=== PATIENT | female | born 1975 | race Hispanic/Latino ===

== ENCOUNTER 2021-03-01 15:28 | Observation (INO) | payer OTHER ==
[2021-03-01] MEDS ORDERED: hydrALAZINE 20 MG/ML VIAL SLOW IVP PRN (16:22)
[2021-03-01] MEDS ORDERED: Acetaminophen 500 MG TAB PO PRN (16:22)
[2021-03-01] MEDS ORDERED: Ondansetron PF 4 MG/2 ML Vial IVP PRN (16:22)
[2021-03-01] MEDS ORDERED: Ondansetron ODT 4 MG TAB PO PRN (16:22)
[2021-03-01 16:58] VITALS: BMI 30.5
[2021-03-01] MEDS ORDERED: Atorvastatin Calcium 40 MG TAB PO SCH (21:00)
[2021-03-01] MEDS: Famotidine 20 MG TAB PO SCH (21:57)
[2021-03-02 05:31] LABS: #Eosinphils 0.1 thou/uL (0.0-0.7); #Lymphocytes 1.7 thou/uL (1.20-3.40); #Monocytes 0.4 thou/uL (0.11-0.59); #Neutrophils 3.6 thou/uL (1.40-6.50); %Basophils 0.7 % (0.0-1.0); %Eosinophils 1.9 % (0.0-10.0); %Lymphocytes 29.3 % (21.0-51.0); %Neutrophils 62.1 % (42.0-75.0); Hemoglobin 12.1 g/dL (12.0-16.0); Mean Corpuscular HGB CONC 33.6 g/dL (32.0-36.0); Mean Corpuscular Hemoglobin 28.6 pg (27.0-31.0); Mean Corpuscular Volume 85.3 fL (78.0-98.0); Mean Platelet Volume 7.1 fL (7.4-10.4); Platelet Count 220 thou/uL (130-400); RBC Distribution Width 12.2 % (11.5-14.5); Red Blood Cell (RBC) Count 4.24 mill/uL (4.20-5.40); White Blood Cell (WBC) Count 5.8 thou/uL (4.8-10.8)
[2021-03-02 05:57] LABS: Anion Gap 14 mmol/L (10-20); BUN (Urea Nitrogen) 14 mg/dL (7.0-18.7); Calc. Creatinine Clearance 121 mL/min (70-130); Calcium 8.8 mg/dL (7.8-10.44); Carbon Dioxide 22 mmol/L (22-29); Cardiac Risk 2.9 (Less than 4.5); Chloride 103 mmol/L (98-107); Cholesterol 167 mg/dl (< 200 Desired); Glucose 95 mg/dL (70-105); HDL Cholesterol 57 mg/dL (>60 Neg Risk); Iron 131 ug/dL (50-170); LDL Cholesterol, Calculated 100 mg/dL; Phosphorus 3.6 mg/dL (2.3-4.7); Potassium 4.1 mmol/L (3.5-5.1); Sodium 135 mmol/L (136-145); Triglycerides 51 mg/dL (Less than 150)
[2021-03-02] MEDS ORDERED: Aspirin 81 mg Enteric Coated Tablet PO SCH (09:00)
[2021-03-02] MEDS: Famotidine 20 MG TAB PO SCH (10:06)
[2021-03-02] MEDS ORDERED: Acetaminophen 325 MG TAB PO PRN (10:21)
[2021-03-02] MEDS ORDERED: HYDROcodone/Acetaminophen 5/325 mg Tablet PO PRN (10:21)
[2021-03-02] MEDS ORDERED: Lorazepam 2 MG/ML VIAL SLOW IVP PRN (10:50)
[2021-03-02] MEDS ORDERED: Lorazepam 2 MG/ML VIAL SLOW IVP SCH (11:00)
[2021-03-02 11:26] LABS: SARS-CoV-2 PCR NAA for Saliva Not Detected (NotDetected)
[2021-03-02 15:56] VITALS: BP 122/67; TEMP 98.1
== END 2021-03-02 19:49 | disposition home or self-care (01) ==
LOC: 2SE 15:44
PROVIDERS: ADMIT Family Medicine; ATTEND Family Medicine
DX: R20.2 Paresthesia of skin (principal); R20.0 Anesthesia of skin; D64.9 Anemia, unspecified; Z20.822 Contact with and (suspected) exposure to COVID-19
CPT/HCPCS: 36415; 70486; 70551; 72141; 78306; 78803; 80048; 80061; 82607; 82746; 83540; 83735; 84100; 84443; 85025; 93306; A9503; G0378; U0003; U0005